=== PATIENT | female | born 1980 | race Caucasian/White ===

== ENCOUNTER 2024-07-14 10:19 | Emergency (ER) | payer MEDICAID, SELFPAY ==
[2024-07-14 10:22] VITALS: BP 142/84; PULSE 82; RESP 18; TEMP 36.8; O2SAT 98
[2024-07-14 10:31] VITALS: BP 142/84; PULSE 87; RESP 20; TEMP 36.8; O2SAT 98
--- NOTE | 2024-07-14 10:45 | DI.RAD_ITS ---
Exam(s) XR CHEST 2V PA LATERAL EXAM: XR CHEST 2V PA LATERAL CLINICAL HISTORY: cough TECHNIQUE: 2D digital imaging was performed. Two views. COMPARISON: No exams were available for comparison FINDINGS: HEART: Normal size. Aorta: Not dilated. PULMONARY VASCULATURE: Normal. MEDIASTINUM: Unremarkable. LUNGS: Clear. PLEURAL SPACE: No pleural effusion or pneumothorax. BONE:Unremarkable for age. SOFT TISSUES: Unremarkable. IMPRESSION: No acute abnormality. DATA REPOSITORY: RADIATION DOSE DELIVERED:
[2024-07-14 11:38] VITALS: BP 140/87; PULSE 80; TEMP 37.1; O2SAT 96
[2024-07-14 12:08] LABS: COVID-19 PCR Negative (Negative); Influenza A PCR Negative (Negative); Influenza B PCR Negative (Negative); RSV PCR Negative (Negative)
[2024-07-14 12:09] LABS: Source Nasopharynx
--- NOTE | 2024-07-14 12:16 | ED.GENADUL_ITS ---
Discharge Plan Disposition Patient Disposition: Home Condition: Stable Discharge Details Clinical Impression: Bronchitis Primary Care Provider: None,None ED Provider: Simeon Hooper Home Meds and New Rx's Prescriptions: New azithromycin 250 mg tablet See Rx Instructions .ROUTE .COMPLEX Qty: 6 0RF Rx Instructions: For 250 mg dose pack: take 500 mg today (day 1), then 250 mg for 4 days (days 2-5) amoxicillin-pot clavulanate 875-125 mg tablet 1 tab PO BID 5 Days Qty: 10 0RF fluconazole 150 mg tablet 150 mg PO Q3D Qty: 2 0RF Rx Instructions: take after you finish your other antibiotics Continued trazodone 100 mg tablet 50 mg PO HS Patient Comments: TAKE 1/2 TO 1 TABLET BY MOUTH AT BEDTIME TO AID WITH SLEEP fluoxetine 20 mg capsule 20 mg PO QAM Patient Comments: TAKE ONE CAPSULE BY MOUTH EVERY MORNING hydroxyzine HCl 25 mg tablet 25 mg PO Q8H PRN Patient Comments: TAKE ONE TABLET BY MOUTH EVERY DAY TO AID WITH ANXIETY AND 1-2 TABLETS AT BEDTIME TO AID WITH SLEEP clonazepam 0.5 mg tablet 0.25 mg PO BID Patient Comments: TAKE ONE TABLET BY MOUTH TWICE A DAY FOR 28 DAYS melatonin 10 mg capsule 10 mg PO HS PRN (DME) Harleen Archer [facility] Spacer MISCELLANEOUS Patient Comments: USE DIRECTED WITH INHALER budesonide-formoterol [Symbicort] 80-4.5 mcg/actuation HFA aerosol inhaler 2 puff INHALATION DAILY PRN Patient Comments: INHALE 2 PUFFS BY MOUTH TWO TIMES A DAY norethindrone (contraceptive) [Deblitane] 0.35 mg tablet 0.35 mg PO DAILY Patient Comments: TAKE ONE TABLET BY MOUTH EVERY DAY ferrous sulfate 220 mg (44 mg iron)/5 mL elixir 220 mg PO .every other day Patient Comments: TAKE 5 MILLILITERS BY MOUTH EVERY OTHER DAY gabapentin 100 mg capsule 100 mg PO PRN PRN Patient Comments: TAKE ONE CAPSULE BY MOUTH TWICE A DAY Discharge Instructions Instructions: Azithromycin (Systemic), Amoxicillin and Clavulanate, Bronchitis, Adult ED Additional Instructions: You were seen in the emergency department for your respiratory infection going on 2 weeks. Your vital signs are normal I do not suspect any severe infection, your chest x-ray is negative for any pneumonia, your COVID and flu swab is n egative. I have sent you 2 different antibiotics for 5 days each please take these as directed. Please use therapeutic dosing of Tylenol (acetamenophen) & Advil (ibuprofen) in an alternating fashion as follows: Take 1000mg of Tylenol every 6 hours without missing doses- that is 4 times per day. Fci in between the Tylenol dosings, take 400-600mg of Advil also on a 6 hour schedule, that is also 4 times per day. The daily maximum dosing of Tylenol is 4000mg, and the daily maximum dosing of Advil is 2400mg. This is safe to do for weeks. Please note that some common cold medications & prescription pain medications may contain acetamenophen and you need to read OTC drug labels and factor that in to maximum daily dosings. Please return for any severe acute worsening of shortness of breath, chest pain or other emergent concerns Discharge Data Discharge Date/Time-TO BE ENTERED AT DEPARTURE: 07/14/24 12:43 HPI General Date/Time Provider Initiated Documentation: 07/14/24 10:31 . HPI Narrative: 44 year-old female presents to ED today by POV/ambulating with a chief complaint of coughing, sore throat, post-nasal drip with onset around Jul 05, went to on the - gave her benzonatate. Quality described as generalized cough, no radiation to shortness of breath, nausea/vomiting, high fever, endorses some L back discomfort when coughing, denies hemoptysis. Severity is described as moderate. Palliating factors include nothing specific attempted. Provoking factors include nothing specific. Patient not anticoagulated. Related Data Home Medications ?Medication ?Instructions ?Recorded ?Confirmed amoxicillin 875 mg-potassium 1 tab PO BID 5 days #10 tabs 07/14/24 clavulanate 125 mg tablet azithromycin 250 mg tablet See Rx Instructions PO .COMPLEX #6 07/14/24 tabs budesonide-formoterol HFA 80 2 puff inhalation DAILY PRN 07/14/24 07/14/24 mcg-4.5 mcg/actuation aerosol inhaler (Symbicort) clonazepam 0.5 mg tablet 0.25 mg PO BID 07/14/24 07/14/24 ferrous sulfate 220 mg (44 mg 220 mg PO .every other day 07/14/24 07/14/24 iron)/5 mL oral elixir fluconazole 150 mg tablet 150 mg PO Q3D 2 doses #2 tabs 07/14/24 fluoxetine 20 mg capsule 20 mg PO QAM 07/14/24 07/14/24 gabapentin 100 mg capsule 100 mg PO PRN PRN 07/14/24 07/14/24 hydroxyzine HCl 25 mg tablet 25 mg PO Q8H PRN 07/14/24 07/14/24 inhalational spacing device 07/14/24 07/14/24 ([employer] Suzi [facility] spacer) melatonin 10 mg capsule 10 mg PO HS PRN 07/14/24 07/14/24 norethindrone (contraceptive) 0.35 0.35 mg PO DAILY 07/14/24 07/14/24 mg tablet (Deblitane) trazodone 100 mg tablet 50 mg PO HS 07/14/24 07/14/24 Previous Rx's ?Medication ?Instructions ?Recorded amoxicillin 875 mg-potassium 1 tab PO BID 5 days #10 tabs 07/14/24 clavulanate 125 mg tablet azithromycin 250 mg tablet See Rx Instructions PO .COMPLEX #6 07/14/24 tabs fluconazole 150 mg tablet 150 mg PO Q3D 2 doses #2 tabs 07/14/24 Allergies Allergy/AdvReac Type Severity Reaction Status Date / Time tomato Allergy Severe Rash Verified 07/14/24 10:34 General Stated Complaint: RespSymp LORI: 3 Review of Systems All systems reviewed & are unremarkable except as noted in HPI and below Exam Narrative Exam Narrative: GENERAL APPEARANCE: Well-nourished, non-toxic, awake and alert, atraumatic, no acute distress. SKIN: Warm, pink, dry, intact, without rashes/lesions/ulcerations. HEAD: Normocephalic, atraumatic, normal hair distribution for gender/age. EYES: Normal conjunctiva, no exudates on lids/lashes. ENT: Nares patent, no circumoral cyanosis, no facial swelling NECK: Supple, trachea midline, painless cervical ROM. LUNGS/CHEST: Lungs CTA bilaterally, non-labored respirations, normal A/P di ameter, symmetrical expansion, no chest wall deformity HEART (CV/PV): Regular rate and rhythm without murmur, no peripheral edema, no JVD. ABDOMEN: Soft, non-distended, no guarding. MSK: Normal ROM, no swelling/deformity to bilateral UEs or LEs, moving all extremities without weakness, no cyanosis, spine midline without tenderness, normal curvature. NEURO: Mental Status AAOx4 - alert to person, place, time, events No facial droop, no forehead involvement. Motor: No focal weakness - strength 5/5 in bilateral UEs and LEs, proximal and distal, symmetric. Sensory: sensation intact to light touch globally. Gait normal: patient ambulated without ataxia into ED room. PSYCH: euthymic, cooperative, pleasant, appropriate speech Course Vital Signs Vital signs: Vital Signs Temperature 36.8 C 07/14/24 10:22 Pulse 82 07/14/24 10:22 Respiratory Rate 18 07/14/24 10:22 Blood Pressure 142/84 H 07/14/24 10:22 Pulse Oximetry 98 07/14/24 10:22 Temperature 37.1 C 07/14/24 11:38 Temperature Source Oral 07/14/24 11:38 Pulse 80 07/14/24 11:38 Respiratory Rate 20 07/14/24 10:31 Blood Pressure 140/87 07/14/24 11:38 Blood Pressure Mean 104 07/14/24 11:38 Blood Pressure Position Sitting 07/14/24 11:38 Pulse Oximetry 96 07/14/24 11:38 Oxygen Delivery Method Room Air 07/14/24 11:38 Oxygen Flow Rate 0 07/14/24 11:38 Pain Level 2 07/14/24 10:31 Lab/Test Results Lab/Test Results: Laboratory Tests Range/Units 07/14/24 07/14/24 11:15 11:25 COVID-19 Source Cancelled Nasopharynx SARS-CoV-2 (PCR) Cancelled Negative Influenza Type A (PCR) Cancelled Negative Influenza Type B (PCR) Cancelled Negative RSV (PCR) Cancelled Negative Medical Decision Making This dictation utilizes [id number] dictation software and may contain unedited grammatical errors. 44 year-old female presents to ED today by POV/ambulating with a chief complaint of coughing, sore throat, post-nasal drip with onset around Jul 05, went to on the - gave her benzonatate. Quality described as generalized cough, no radiation to shortness of breath, nausea/vomiting, high fever, endorses some L back discomfort when coughing, denies hemoptysis. Severity is described as moderate. Palliating factors include nothing specific attempted. Provoking factors include nothing specific. Patients' medical history: Noncontributory. Family and social history: Noncontributory. Pertinent exam findings / vital signs include lungs CTA, no hypoxia, no respiratory distress, nontoxic and afebrile. Differential / pathologies of concern include upper respiratory infection, bronchitis, pneumonia, unlikely PE, not sepsis. Diagnostic studies of: -COVID/flu/RSV PCR-negative -X-ray chest shows no pneumonia. Interventions of: -Given empiric antibiotics for duration of illness. ED Course/Assessment/Plan: 44-year-old otherwise healthy female presents with cough, sore throat and sinusitis, given the length of her illness it is reasonable to trial antibiotics at this time, counseled on therapeutic dosing Tylenol and ibuprofen and continuing her benzonatate at home as needed, strict return criteria for any worsening respiratory status. Findings not consistent with hypoxic respiratory failure or respiratory distress, pneumonia, sepsis, PE-no tachycardia. Disposition of bronchitis. Patient verbalized understanding of the plan and return to ED criteria and engaged in shared decision making. Medical Records Medical records reviewed: Yes I reviewed the patient's medical records. Imaging Data Radiologic Study: Attestation: I personally reviewed and interpreted this imaging study as follows: Radiologist's impression: EXAM: XR CHEST 2V PA LATERAL CLINICAL HISTORY: cough TECHNIQUE: 2D digital imaging was performed. Two views. COMPARISON: No exams were available for comparison FINDINGS: HEART: Normal size. Aorta: Not dilated. PULMONARY VASCULATURE: Normal. MEDIASTINUM: Unremarkable. LUNGS: Clear. PLEURAL SPACE: No pleural effusion or pneumothorax. BONE:Unremarkable for age. SOFT TISSUES: Unremarkable. IMPRESSION: No acute abnormality. Lab Data Lab results reviewed: Yes I reviewed the patient's lab results. Labs: Laboratory Tests Range/Units 07/14/24 07/14/24 11:15 11:25 COVID-19 Source Cancelled Nasopharynx SARS-CoV-2 (PCR) Cancelled Negative Influenza Type A (PCR) Cancelled Negative Influenza Type B (PCR) Cancelled Negative RSV (PCR) Cancelled Negative Quality:SDOH Health Related Social Needs: No Data to Display PFSH All Active Problems (Updated 07/14/24 @ 12:18 by YOVANY Covarrubias) Bronchitis (Acute) Social History Smoking/Tobacco Use Status: Never Smoking risk assessment performed?: Yes Alcohol Intake: never Drug use: Never Substance use type: does not use
[2024-07-14 12:37] VITALS: BP 134/88; PULSE 70; RESP 18; TEMP 36.3; O2SAT 189
== END 2024-07-14 12:43 | disposition home or self-care (01) ==
PROVIDERS: Emergency Provider Physician Assistant
DX: J06.9 Acute upper respiratory infection, unspecified (principal)
CPT/HCPCS: 87637; 99284; 71046; 99283

== ENCOUNTER 2024-09-14 01:14 | Outpatient (CLI) | payer MEDICAID, SELFPAY ==
--- NOTE | 2024-09-14 | DI.US_ITS ---
Exam(s) US PELVIS TRANSVAGINAL EXAM: US PELVIS TRANSVAGINAL CLINICAL HISTORY: D25.9 Leiomyoma of uterus, unspecified. TECHNIQUE: Transabdominal and transvaginal pelvic ultrasound was performed using standard protocol. COMPARISON: No exams were available for comparison FINDINGS: UTERUS: Position: Anteverted. Size: 6.1 long by 2.7 AP by 3.1 transverse cm Endometrium: 0.1 cm. Normal for patient's menstrual status. There is a small amount of fluid seen wit hin the canal. Myometrium: Unremarkable. No fibroid is seen at this time. Cervix: A small nabothian cyst is present. OVARIES: Right: 2.4 x 2.0 x 2.3 cm Cyst or mass: No suspicious cystic or solid masses. Left: 2.8 x 2.1 x 2.2 cm Cyst or mass: No suspicious cystic or solid masses. DOPPLER: Color: Symmetric and uniform flow to both ovaries. CUL-DE-SAC: Free fluid: None. Other: None. IMPRESSION: 1. Normal-appearing uterus with endometrial stripe within normal limits. 2. There is no fibroid seen on this examination. 3. Unremarkable bilateral ovaries. DATA REPOSITORY:
== END 2024-09-14 01:34 ==
LOC: DI 01:14
PROVIDERS: PCP Nurse Practitioner Family; Visit Provider Nurse Practitioner Family
DX: D25.9 Leiomyoma of uterus, unspecified (principal)
CPT/HCPCS: 76830; 76856

== ENCOUNTER 2024-11-04 09:11 | Emergency (ER) | payer MEDICAID, SELFPAY ==
[2024-11-04 09:12] VITALS: BP 196/77; PULSE 87; RESP 15; TEMP 36.8; O2SAT 99
[2024-11-04 09:19] VITALS: BP 196/77; PULSE 87; RESP 15; TEMP 36.8; O2SAT 99
--- NOTE | 2024-11-04 09:29 | W.ED.GENAD ---
Discharge Plan Disposition Patient Disposition: Home Condition: Stable Discharge Details Clinical Impression: UTI (urinary tract infection) Primary Care Provider: Amanda Thornton ED Provider: Valerio Anaya Home Meds and New Rx's Prescriptions: New nitrofurantoin monohyd/m-cryst [Macrobid] 100 mg capsule 100 mg PO Q12H 5 Days Qty: 10 0RF Rx Instructions: must administer with a meal/food fluconazole 150 mg tablet 150 mg PO DAILY Qty: 2 0RF Rx Instructions: take 1 tablet on day 1 and if still symptomatic in 3 days take another 1 tablet metronidazole 500 mg tablet 500 mg PO Q8H Qty: 21 0RF Continued trazodone 100 mg tablet 50 mg PO HS Patient Comments: TAKE 1/2 TO 1 TABLET BY MOUTH AT BEDTIME TO AID WITH SLEEP fluoxetine 20 mg capsule 20 mg PO QAM Patient Comments: TAKE ONE CAPSULE BY MOUTH EVERY MORNING hydroxyzine HCl 25 mg tablet 25 mg PO Q8H PRN Patient Comments: TAKE ONE TABLET BY MOUTH EVERY DAY TO AID WITH ANXIETY AND 1-2 TABLETS AT BEDTIME TO AID WITH SLEEP clonazepam 0.5 mg tablet 0.25 mg PO BID Patient Comments: TAKE ONE TABLET BY MOUTH TWICE A DAY FOR 28 DAYS melatonin 10 mg capsule 10 mg PO HS PRN (DME) Harleen Archer [facility] Spacer MISCELLANEOUS Patient Comments: USE DIRECTED WITH INHALER budesonide-formoterol [Symbicort] 80-4.5 mcg/actuation HFA aerosol inhaler 2 puff INHALATION DAILY PRN Patient Comments: INHALE 2 PUFFS BY MOUTH TWO TIMES A DAY norethindrone (contraceptive) [Deblitane] 0.35 mg tablet 0.35 mg PO DAILY Patient Comments: TAKE ONE TABLET BY MOUTH EVERY DAY ferrous sulfate 220 mg (44 mg iron)/5 mL elixir 220 mg PO .every other day Patient Comments: TAKE 5 MILLILITERS BY MOUTH EVERY OTHER DAY Discharge Instructions Additional Instructions: your urine showed evidence of a UTI. follow up with your primary care provider if symptoms aren't improving. If you feel more ill or have new symptoms such as high fevers return to the emergency department HPI General Mode of arrival: ambulatory. Date/Time Provider Initiated Documentation: 11/04/24 09:12. Limitations to Documentation: no limitations. Information obtained by: patient. History of Present Illness 44 year old F presents to the emergency department with the chief complaint of painful urination, described as moderate, Patient started experiencing this day(s) (1) and it has been constant. No relieving factors improve symptom(s), No exacerbating factors reported . Patient notes denies fever/chills. Patient did receive the following treatments prior to arrival, none Related Data Home Medications ?Medication ?Instructions ?Recorded ?Confirmed budesonide-formoterol HFA 80 2 puff inhalation DAILY PRN 07/14/24 11/04/24 mcg-4.5 mcg/actuation aerosol inhaler (Symbicort) clonazepam 0.5 mg tablet 0.25 mg PO BID 07/14/24 11/04/24 ferrous sulfate 220 mg (44 mg 220 mg PO .every other day 07/14/24 11/04/24 iron)/5 mL oral elixir fluoxetine 20 mg capsule 20 mg PO QAM 07/14/24 11/04/24 hydroxyzine HCl 25 mg tablet 25 mg PO Q8H PRN 07/14/24 11/04/24 inhalational spacing device 07/14/24 11/04/24 ([facility] spacer) melatonin 10 mg capsule 10 mg PO HS PRN 07/14/24 11/04/24 norethindrone (contraceptive) 0.35 0.35 mg PO DAILY 07/14/24 11/04/24 mg tablet (Deblitane) trazodone 100 mg tablet 50 mg PO HS 07/14/24 11/04/24 fluconazole 150 mg tablet 150 mg PO DAILY #2 tabs 11/04/24 metronidazole 500 mg tablet 500 mg PO Q8H #21 tabs 11/04/24 nitrofurantoin 100 mg PO Q12H 5 days #10 caps 11/04/24 monohydrate/macrocrystals 100 mg capsule (Macrobid) Previous Rx's ?Medication ?Instructions ?Recorded fluconazole 150 mg tablet 150 mg PO DAILY #2 tabs 11/04/24 metronidazole 500 mg tablet 500 mg PO Q8H #21 tabs 11/04/24 nitrofurantoin 100 mg PO Q12H 5 days #10 caps 11/04/24 monohydrate/macrocrystals 100 mg capsule (Macrobid) Allergies Allergy/AdvReac Type Severity Reaction Status Date / Time tomato Allergy Severe Rash Verified 11/04/24 09:19 General Stated Complaint: Urinary LORI: 4 Review of Systems All systems reviewed & are unremarkable except as noted in HPI and below Constitutional Constitutional: Denies chills, Denies fever(s) and Denies weakness Cardiovascular Cardiovascular: Denies chest pain and Denies dyspnea Respiratory Respiratory: Denies cough and Denies dyspnea Gastrointestinal Gastrointestinal: Denies abdominal pain, Denies nausea and Denies vomiting Genitourinary Genitourinary: Reports dysuria and Reports vaginal pruritus Neurologic Neurologic: Denies weakness Psychiatric Psychiatric: Denies depression Exam Const General: no acute distress Orientation: alert HENMT Head: normal to inspection Ears: external ears normal General nose exam: external nose normal Mouth: moist mucous membranes Eyes General: appearance normal, both eyes and all related structures Neck Neck: normal visual inspection Resp Effort & Inspection: normal respiratory effort and able to speak in complete sentences Cardio Rate: regular rate GI Palpation: soft and nontender Back/Spine/Pelvis Back: no CVA tenderness Skin General skin exam: no rashes or lesions noted Neuro General: patient alert and patient oriented x3 Extrem General: normal to inspection Psych Mental Status: mental status grossly normal Course Vital Signs Vital signs: Vital Signs Temperature 36.8 C 11/04/24 09:12 Pulse 87 11/04/24 09:12 Respiratory Rate 15 11/04/24 09:12 Blood Pressure 196/77 H 11/04/24 09:12 Pulse Oximetry 99 11/04/24 09:12 Temperature 36.8 C 11/04/24 09:19 Temperature Source Oral 11/04/24 09:19 Pulse 87 11/04/24 09:19 Respiratory Rate 15 11/04/24 09:19 Blood Pressure 196/77 H 11/04/24 09:19 Blood Pressure Position Sitting 11/04/24 09:19 Pulse Oximetry 99 11/04/24 09:19 Oxygen Delivery Method Room Air 11/04/24 09:19 Oxygen Flow Rate 0 11/04/24 09:19 Pain Level 1 11/04/24 09:19 Lab/Test Results Lab/Test Results: POC- Test(urine) Negative Medical Decision Making 34-year-old female comes in with 1 day of painful urination and urinary urgency and also vaginal itching. Denies any vaginal bleeding, no abdominal pain, no back pain, no fevers or chills. She is well-appearing on exam speaking in full sentences in no distress. She has a soft nontender abdomen. No CVA tenderness on exam. Given her symptoms I will check a UA and also obtain a patch path screen. She has no fevers and no CVA tenderness or other findings on exam or history to suggest entities such as sepsis or pyelonephritis and do not feel any blood work indicated. UA/micrscopy shows moderate bacteria, given symptoms will start her on macrobid and she also requests fluconazole as she gets yeast infections with antibiotics. Advise she should only be taking this if you develop symptoms of yeast infection. She does not want to wait for the Vag path screen, I will call her if this comes back positive for anything. Advised to follow-up PCP if not improving return precautions given Patient's vag path came back positive for gardnerella, I sent in a prescription for flagyl to her pharmacy and left a message for her to call back to discuss results Differential Diagnosis Differential Diagnosis: UTI, yeast infection Quality:SDOH Health Related Social Needs: No Data to Display PFSH All Active Problems (Updated 11/04/24 @ 10:16 by Valerio Anaya MD) UTI (urinary tract infection) (Acute) Poor social situation (Acute) Contraception management (Acute) Abnormal uterine bleeding (AUB) (Acute) Anxiety (Chronic) COPD (chronic obstructive pulmonary disease) (Chronic) Surgical History (Updated 10/08/24 @ 13:27 by Anum Ward DO) History of delivery Social History Smoking/Tobacco Use Status: Never Smoking risk assessment performed?: Yes Alcohol Intake: never Drug use: Never Substance use type: does not use History Past Pregnancies Del. Date GA/Weeks # Preg Succ Route Wgt Sex Labor Lgth Anesthesia Location Prov Complic Unknown Yes 3175.147 g Female [facility]
[2024-11-04 09:31] LABS: Bilirubin Negative (Negative); Blood Trace-intact (Negative); Clarity Sl Cloudy (Clear); Glucose Negative (Negative); Ketones Negative (Negative); Leukocyte Esterase Small (Negative); Nitrite Negative (Negative); Urobilinogen 0.2 mg/dL (Up to 0.2)
[2024-11-04 09:49] LABS: Bacteria Moderate HPF (Negative); C & S Indicated? No; Casts Negative LPF (Negative); Crystals Negative HPF (Negative); Epithelial Cells Many HPF (Negative); Mucus Trace (Negative)
[2024-11-04 10:25] VITALS: BP 118/86
== END 2024-11-04 10:26 | disposition home or self-care (01) ==
PROVIDERS: Emergency Provider Emergency Medicine; PCP Nurse Practitioner Family
DX: N39.0 Urinary tract infection, site not specified (principal)
CPT/HCPCS: 99283 ×2; 81025; 87077; 81003; 81015; 87086; 87186; 87480; 87510; 87660

== ENCOUNTER 2024-11-10 09:34 | Outpatient (CLI) | payer MEDICAID, SELFPAY ==
[2024-11-10 21:16] LABS: T3,Free 3.2 pg/mL (2.8-5.3)
[2024-11-11 12:28] LABS: HIV-1/2 Ag & Ab Screen Negative (Negative)
[2024-11-11 12:36] LABS: Hepatitis C Ab w Rflx HCV PCR Negative (Negative)
== END 2024-11-10 09:35 | disposition home or self-care (01) ==
LOC: LBO 09:34
PROVIDERS: PCP Nurse Practitioner Family; Visit Provider Nurse Practitioner Family
DX: Z11.59 Encounter for screening for other viral diseases (principal); R79.89 Other specified abnormal findings of blood chemistry; Z11.4 Encounter for screening for human immunodeficiency virus [HIV]
CPT/HCPCS: 36415; 86803; 87389; 84481

== ENCOUNTER 2024-12-07 01:48 | Outpatient (CLI) | payer MEDICAID, SELFPAY ==
--- NOTE | 2024-12-07 | DI.MAMMO_ITS ---
Exam(s) MAMMO SCREENING EXAM: MAMMO SCREENING CLINICAL HISTORY: Baseline screening, Z12.31. TECHNIQUE: Bilateral full field digital CC and MLO mammographic images were obtained with 3D tomosyn thesis and utilizing computer aided detection (CAD). COMPARISON: None. This is a baseline mammogram on a 44-year-old. FINDINGS: The fibroglandular tissue pattern is predominately fatty. There are no significant right breast findings. In the left breast there are multiple microcalcifications in the upper-outer quadrant which should un dergo spot Mag views. There is no significant architectural distortion nor skin thickening-retraction. IMPRESSION: 1. No radiographic evidence of malignancy in the right breast. 2. Left breast microcalcifications which require further imaging with spot Mag views. These 2D spot Mag view should be performed cc, MLO, and straight lateral BI-RADS Category 0 - Incomplete: Need additional imaging evaluation Breast Density - Category B - There are scattered areas of fibroglandular density. Breast density Category C or D implies that the patient has dense breast tissue. Dense breast tissue can make it harder to find cancer on a mammogram. Dense breast tissue is also associated with an incr eased risk of breast cancer. This information about the result of the mammogram report was provided to the patient to raise their awareness. Use this report when you speak with the patient about their risks for breast cancer, which includes their family history. At that time, you may recommend additional screening tests (Ultrasoun d or MRI) as these tests may add significant information. A negative radiographic report should not delay biopsy if a dominant or clinically suspicious mass is present. Up to ten percent of cancers are not identified on mammography. A negative report may reinforce clinical impression. Adenosis and dense breasts may obscure an underlying neoplasm. False positive reports average 6 to 10%. Patient will receive a letter notifying them of these results.
== END 2024-12-07 02:08 ==
LOC: DI 01:48
PROVIDERS: PCP Nurse Practitioner Family; Visit Provider Nurse Practitioner Family
DX: Z12.31 Encounter for screening mammogram for malignant neoplasm of breast (principal); R92.0 Mammographic microcalcification found on diagnostic imaging of breast
CPT/HCPCS: 77063; 77067

== ENCOUNTER 2024-12-09 01:55 | Outpatient (CLI) | payer MEDICAID, SELFPAY ==
--- NOTE | 2024-12-09 13:42 | DI.MAMMO_ITS ---
Exam(s) MG MAMMO SCREEN CALL BACK UNI EXAM: MG MAMMO SCREEN CALL BACK UNI CLINICAL HISTORY: F/U MAMMO, LT BREAST MICROCALCIFICATIONS. TECHNIQUE: Craniocaudal and mediolateral oblique Full Field Digital Mammography views of the left br east with Computer Aided Diagnosis. COMPARISON: Comparison is made with baseline examination dated 12/07/2024. FINDINGS: Mammography/Tomosynthesis: Masses/Architectural Distortion: No suspicious masses or areas of architectural distortion are presen t. Microcalcifictions: No suspicious pleomorphic-type are seen. There again seen calcifications in the u pper outer quadrant of the left breast. The calcifications are punctate. No pleomorphic calcificati ons are seen. Skin Thickening/Nipple Retraction: None. IMPRESSION: 1. No definite evidence for malignancy is seen at this time. 2. A 3 month follow-up left mammogram is requested for re-evaluation. 3. The findings were discussed with the patient on the date of the examination. BI-RADS Category 3 - Probably Benign Finding: Recommend follow-up imaging in 3 months Breast Density - Category B - There are scattered areas of fibroglandular density. Breast density Category C or D implies that the patient has dense breast tissue. Dense breast tissue can make it harder to find cancer on a mammogram. Dense breast tissue is also associated with an incr eased risk of breast cancer. This information about the result of the mammogram report was provided to the patient to raise their awareness. Use this report when you speak with the patient about their risks for breast cancer, which includes their family history. At that time, you may recommend additional screening tests (Ultrasoun d or MRI) as these tests may add significant information. A negative radiographic report should not delay biopsy if a dominant or clinically suspicious mass is present. Up to ten percent of cancers are not identified on mammography. A negative report may reinforce clinical impression. Adenosis and dense breasts may obscure an underlying neoplasm. False positive reports average 6 to 10%. Patient will receive a letter notifying them of these results.
== END 2024-12-09 02:15 ==
LOC: DI 01:55
PROVIDERS: PCP Nurse Practitioner Family; Visit Provider Nurse Practitioner Family
DX: Z12.31 Encounter for screening mammogram for malignant neoplasm of breast (principal); R92.323 Mammographic fibroglandular density, bilateral breasts; D24.2 Benign neoplasm of left breast
CPT/HCPCS: 77063; 77067

== ENCOUNTER 2025-02-08 16:09 | Outpatient (REF) | payer MEDICAID, SELFPAY ==
[2025-02-09 11:53] LABS: Chlamydia Result Negative (Negative); GC Result Negative (Negative)
[2025-02-09 23:22] LABS: Trich. vaginalis amplified RNA Negative (Negative)
== END 2025-02-08 16:10 | disposition home or self-care (01) ==
LOC: LBN 16:09
PROVIDERS: PCP Nurse Practitioner Family; Visit Provider Family Medicine
DX: R10.2 Pelvic and perineal pain (principal)
CPT/HCPCS: 87491; 87591; 87661

== ENCOUNTER 2025-03-10 02:42 | Outpatient (CLI) | payer MEDICAID, SELFPAY ==
--- NOTE | 2025-03-10 10:34 | DI.MAMMO_ITS ---
Exam(s) MG MAMMO DIAGNOSTIC UNI EXAM: MG MAMMO DIAGNOSTIC UNI CLINICAL HISTORY: ABNL FINDINGS R92.8 3 MO FU LEFT BREAST FROM 12/09/24 TECHNIQUE: Left cc and MLO mammogram images were performed according to the usual protocol including computer analysis with CAD system, tomosynthesis and C- view imaging. CC and ML magnification views were also performed. COMPARISON: MG MG MAMMO SCREENING from 12/07/2024 MG MG MAMMO SCREEN CALL BACK UNI from 12/09/2024 FINDINGS: The left breast is composed of mainly fatty density tissue, Breast Density category A. No suspicious masses or suspicious microcalcifications are seen. There are stable punctate calcifications noted in the upper outer quadrant as well as centrally in the breast. No skin thickening or abnormal axillary lymph nodes are seen. IMPRESSION: BI-RADS Category 2 - Benign Findings Yearly screening mammography is recommended, due November 2025. Breast Density - Category A - The breast are almost entirely fatty. Breast density Category C or D implies that the patient has dense breast tissue. Dense breast tissue can make it harder to find cancer on a mammogram. Dense breast tissue is also associated with an increased risk of breast cancer. This information about the result of the mammogram report was provided to the patient to raise their awareness. Use this report when you speak with the patient about their risks for breast cancer, which includes their family history. At that time, you may recommend additional screening tests (Ultrasound or MRI) as these tests may add significant information. A negative radiographic report should not delay biopsy if a dominant or clinically suspicious mass is present. Up to ten percent of cancers are not identified on mammography. A negative report may reinforce clinical impression. Adenosis and dense breasts may obscure an underlying neoplasm. False positive reports average 6 to 10%. Patient will receive a letter notifying them of these results.
== END 2025-03-10 03:02 ==
LOC: DI 02:42
PROVIDERS: PCP Nurse Practitioner Family; Visit Provider Nurse Practitioner Family
DX: R92.8 Other abnormal and inconclusive findings on diagnostic imaging of breast (principal); Z12.31 Encounter for screening mammogram for malignant neoplasm of breast
CPT/HCPCS: 77061; 77065; G0279

== ENCOUNTER 2025-05-13 14:52 | Outpatient (CLI) | payer MEDICAID, SELFPAY ==
[2025-05-13 15:11] LABS: Abs Immature Grans 0.02 10^3/uL (0.0-0.06); HCT 36.4 % (36.0-46.0); HGB 12.3 g/dL (11.2-15.7); Immature Grans % 0.4 %; MCH 27.4 pg (27.0-33.0); MCHC 33.8 % (32.0-36.0); MCV 81 fL (80-95); MPV 10.8 fL (8.0-11.0); Platelet Count 197 10^3/uL (130-400); RBC 4.49 10^6/uL (3.93-5.22); RDW 13.7 % (11.7-14.6); RDW-SD 39.8 fL; WBC 4.71 10^3/uL (4.4-10.8)
[2025-05-13 18:12] LABS: ALT 19 U/L (10-49); AST 21 U/L (<34); Albumin 4.9 g/dL (3.4-5.0); Alkaline Phosphatase 50 U/L (46-116); Anion Gap 12.7 mmol/L (3-11); BUN 11 mg/dL (9-23); Bilirubin, Total 0.40 mg/dL (0.2-1.2); CO2 25.3 mmol/L (20.0-31.0); Calcium 9.2 mg/dL (8.3-10.6); Chloride 106 mmol/L (98-107); Glucose 109 mg/dL (74-106); Potassium 3.7 mmol/L (3.5-5.1); Sodium 144 mmol/L (136-145); Total Protein 7.5 g/dL (5.7-8.2)
== END 2025-05-13 14:53 | disposition home or self-care (01) ==
LOC: LBO 14:54
PROVIDERS: PCP Nurse Practitioner Family; Visit Provider Nurse Practitioner Family
DX: Z00.00 Encounter for general adult medical examination without abnormal findings (principal)
CPT/HCPCS: 36415; 80053; 83880; 85025

== ENCOUNTER → 2025-05-13 15:21 | Outpatient (CLI) | payer MEDICAID, SELFPAY ==
--- NOTE | 2025-05-13 15:35 | DI.RAD_ITS ---
Exam(s) XR CHEST 2V PA LATERAL EXAM: XR CHEST 2V PA LATERAL CLINICAL HISTORY: sob R06.02. TECHNIQUE: 2D digital imaging was performed. COMPARISON: CR XR CHEST 2V PA LATERAL from 07/14/2024 FINDINGS: 2 views: Heart size is normal. The mediastinum is not widened. Lungs are clear. No infiltrates nor pleural effusions. IMPRESSION: No acute pulmonary findings. DATA REPOSITORY: RADIATION DOSE DELIVERED:
== END ==
LOC: DI 15:24
PROVIDERS: PCP Nurse Practitioner Family; Visit Provider Nurse Practitioner Family
DX: R06.02 Shortness of breath (principal)
CPT/HCPCS: 71046